=== PATIENT | female | born 1995 | race Caucasian/White ===

== ENCOUNTER 2024-10-31 19:04 | Emergency (ER) | payer OTHER ==
[~2024-10-31] VITALS: Ht 167.6 cm; Wt 73.4 kg
[2024-11-01 00:47] LABS: BASO # 0.1 10^3/uL (0.0-0.2); BASO % 0.6 % (0.0-1.0); EOS # 0.3 10^3/uL (0.0-0.5); EOS % 3.7 % (0.0-3.0); LYMPH # 2.4 10^3/uL (1.5-5.0); LYMPH % 30.8 % (24.0-44.0); MONO # 0.7 10^3/uL (0.0-0.8); MONO % 9.3 % (2.0-8.0); NEUTROPHILS # 4.4 10^3/uL (1.5-8.5); NEUTROPHILS % 55.1 % (36.0-66.0); PLATELET COUNT, AUTOMATED 273 10^3/uL (150-450)
[2024-11-01 01:14] LABS: ALT/SGPT 35 U/L (7.0-40); AST/SGOT 29 U/L (<34); CALCIUM LEVEL 9.8 MG/DL (8.5-10.1); CARBON DIOXIDE LEVEL 26 MMOL/L (20-31); CHLORIDE LEVEL 105 MMOL/L (98-107); CREATININE FOR GFR 0.65 MG/DL (0.55-1.30); GLOMERULAR FILTRATION RATE > 90.0 (>60); HCG, SERUM QUALITATIVE POSITIVE (NEGATIVE); POTASSIUM SERUM 4.2 MMOL/L (3.5-5.1); SODIUM LEVEL 142 MMOL/L (136-145)
[2024-11-01 02:50] VITALS: TEMP 98
[2024-11-01 02:53] LABS: HCG, SERUM QUANTITATIVE 7589.7 MIU/ML (<4.2)
[2024-11-01 06:05] VITALS: BP 107/65; O2SAT 99
== END 2024-11-01 06:57 | disposition home or self-care (01) ==
LOC: M ED 19:04
DX: O46.91 Antepartum hemorrhage, unspecified, first trimester (principal); Z3A.01 Less than 8 weeks gestation of pregnancy; O34.81 Maternal care for other abnormalities of pelvic organs, first trimester; N83.291 Other ovarian cyst, right side

== ENCOUNTER → 2024-11-03 | Outpatient (CLI) | payer OTHER | LOC: M LAB 12:41 | DX: N93.9 Abnormal uterine and vaginal bleeding, unspecified (principal) ==

== ENCOUNTER → 2024-12-26 | Outpatient (CLI) | payer OTHER ==
[2024-12-26 13:29] LABS: PLATELET COUNT, AUTOMATED 282 10^3/uL (150-450)
[2024-12-26 14:04] LABS: HIV 1&2 SCREEN NEGATIVE (NEGATIVE)
[2024-12-26 14:12] LABS: HEPATITIS C VIRUS ABY INDEX 0.26 INDEX (<0.8)
[2024-12-26 14:42] LABS: Trichomonas vaginalis (AMP) NOT DETECTED (NEGATIVE)
[2024-12-26 15:06] LABS: GC DNA AMPLIFICATION NEGATIVE (NEGATIVE)
== END ==
LOC: M PLALAB 10:55
PROVIDERS: ATTEND Advanced Practice Midwife
DX: Z34.81 Encounter for supervision of other normal pregnancy, first trimester (principal); Z3A.00 Weeks of gestation of pregnancy not specified

== ENCOUNTER → 2024-12-26 | Outpatient (REF) | payer OTHER ==
[2024-12-27 17:12] LABS: BVAB 2 NEGATIVE (NEGATIVE)
[2024-12-27 17:33] LABS: CANDIDA GLABRATA NAA NOT DETECTED (NOT DETECTED); TRICH VAG BY NAA NOT DETECTED (NOT DETECTED)
[2024-12-27 17:47] LABS: CHLAMYDIA TRACHOMATIS NAA NOT DETECTED (NOT DETECTED)
== END ==
LOC: M PLALAB 10:31
PROVIDERS: ATTEND Advanced Practice Midwife
DX: Z34.81 Encounter for supervision of other normal pregnancy, first trimester (principal)

== ENCOUNTER → 2025-01-31 | Outpatient (CLI) | payer OTHER | LOC: M WHC 06:39 | PROVIDERS: ATTEND Advanced Practice Midwife | DX: Z34.82 Encounter for supervision of other normal pregnancy, second trimester (principal); Z3A.19 19 weeks gestation of pregnancy ==

== ENCOUNTER → 2025-02-27 | Outpatient (CLI) | payer OTHER | LOC: M WHC 12:00 | PROVIDERS: ATTEND Advanced Practice Midwife | DX: Z34.82 Encounter for supervision of other normal pregnancy, second trimester (principal) ==

== ENCOUNTER → 2025-03-18 | Outpatient (CLI) | payer OTHER ==
[2025-03-18 17:34] LABS: PLATELET COUNT, AUTOMATED 251 10^3/uL (150-450)
[2025-03-18 18:05] LABS: GLUCOSE CHALLENGE TEST 1 HOUR 102 MG/DL (LESS THAN 140)
[2025-03-18 18:16] LABS: Trichomonas vaginalis (AMP) NOT DETECTED (NEGATIVE)
[2025-03-18 18:40] LABS: GC DNA AMPLIFICATION NEGATIVE (NEGATIVE); HIV 1&2 SCREEN NEGATIVE (NEGATIVE)
[2025-03-18 18:48] LABS: HEPATITIS C VIRUS ABY INDEX 0.10 INDEX (<0.8)
== END ==
LOC: M PLALAB 14:44
PROVIDERS: ATTEND Student in an Organized Health Care Education/Training Program
DX: Z34.80 Encounter for supervision of other normal pregnancy, unspecified trimester (principal)

== ENCOUNTER → 2025-04-08 | Outpatient (REF) | payer OTHER ==
[~2025-04-08] MED LIST: ACET-897 PO; ALBU8.5H INH; PRED20TA PO; PRENTAB9 PO; ROBI1LIQ9 PO; SYMB16INH INH
== END ==
LOC: M LAB REF 17:06
PROVIDERS: ATTEND Physician Assistant
DX: J06.9 Acute upper respiratory infection, unspecified (principal)

== ENCOUNTER 2025-04-18 11:53 | Inpatient (IN) | payer OTHER ==
[~2025-04-18] VITALS: Ht 167.6 cm; Wt 74.5 kg
[2025-04-18 12:15] VITALS: BP 122/60; O2SAT 92
[2025-04-18] MEDS ORDERED: ROBI1LIQ9 PO (12:18)
[2025-04-18] MEDS ORDERED: PRENTAB9 PO (12:18)
[2025-04-18] MEDS ORDERED: ACET-897 PO (12:18)
[2025-04-18] MEDS: ONDANSETRON 4MG/2ML VIAL IV PRN (12:48)
[2025-04-18] MEDS: LR 500 ML IV ONE (12:48)
[2025-04-18 13:03] LABS: BASO # 0.0 10^3/uL (0.0-0.2); BASO % 0.2 % (0.0-1.0); EOS # 0.1 10^3/uL (0.0-0.5); EOS % 0.6 % (0.0-3.0); LYMPH # 0.9 10^3/uL (1.5-5.0); LYMPH % 8.0 % (24.0-44.0); MONO # 0.9 10^3/uL (0.0-0.8); MONO % 7.8 % (2.0-8.0); NEUTROPHILS # 9.5 10^3/uL (1.5-8.5); NEUTROPHILS % 82.3 % (36.0-66.0); PLATELET COUNT, AUTOMATED 279 10^3/uL (150-450)
[2025-04-18] MEDS: LR 1,000 ML IV SCH (13:27)
[2025-04-18 13:42] LABS: ALT/SGPT 51 U/L (7.0-40); AST/SGOT 80 U/L (<34); CALCIUM LEVEL 8.7 MG/DL (8.5-10.1); CARBON DIOXIDE LEVEL 20 MMOL/L (20-31); CHLORIDE LEVEL 104 MMOL/L (98-107); CREATININE FOR GFR 0.45 MG/DL (0.55-1.30); GLOMERULAR FILTRATION RATE > 90.0 (>60); POTASSIUM SERUM 4.3 MMOL/L (3.5-5.1); SODIUM LEVEL 137 MMOL/L (136-145)
[2025-04-18 16:07] VITALS: BP 96/53; O2SAT 95
[2025-04-18] MEDS: AZITHROMYCIN INJ 500 MG, VIAL MATE ADAPTER 1 EACH in NS 250 ML IV SCH (16:52)
[2025-04-18] MEDS: cefTRIAXone SOD 1 GM in DEXTROSE 5% (D5W) ADV/MINI-BAG 50 ML IV SCH (18:49)
[2025-04-18 19:35] VITALS: BP 91/51
[2025-04-18 21:42] VITALS: BP 94/53; O2SAT 97
[2025-04-19 03:29] VITALS: BP 90/52
[2025-04-19] MEDS: guaiFENesin DM LIQ 10ML UD PO PRN (03:38)
[2025-04-19] MEDS: ALBUTEROL SULFATE 2.5 MG/0.5 ML INH CONCENTRATE NEB SOLN NEB PRN (04:46)
[2025-04-19 07:02] LABS: BASO # 0.0 10^3/uL (0.0-0.2); BASO % 0.3 % (0.0-1.0); EOS # 0.1 10^3/uL (0.0-0.5); EOS % 0.9 % (0.0-3.0); LYMPH # 1.3 10^3/uL (1.5-5.0); LYMPH % 13.9 % (24.0-44.0); MONO # 0.9 10^3/uL (0.0-0.8); MONO % 9.3 % (2.0-8.0); NEUTROPHILS # 6.7 10^3/uL (1.5-8.5); NEUTROPHILS % 73.4 % (36.0-66.0); PLATELET COUNT, AUTOMATED 282 10^3/uL (150-450)
[2025-04-19 07:42] LABS: ALT/SGPT 56 U/L (7.0-40); AST/SGOT 55 U/L (<34); CALCIUM LEVEL 7.9 MG/DL (8.5-10.1); CARBON DIOXIDE LEVEL 20 MMOL/L (20-31); CHLORIDE LEVEL 107 MMOL/L (98-107); CREATININE FOR GFR 0.52 MG/DL (0.55-1.30); GLOMERULAR FILTRATION RATE > 90.0 (>60); MAGNESIUM LEVEL 1.6 MG/DL (1.8-2.4); POTASSIUM SERUM 3.6 MMOL/L (3.5-5.1); SODIUM LEVEL 139 MMOL/L (136-145)
[2025-04-19 09:03] VITALS: BP 105/53
[2025-04-19] MEDS: MAG SULF 1GM/100ML (MAG RUN) 1 GM in IV 1 EA IV SCH (10:42)
[2025-04-19 12:25] VITALS: BP 91/51
[2025-04-19 15:29] VITALS: BP 101/56
[2025-04-19 19:04] VITALS: BP 99/57; O2SAT 99
[2025-04-19 23:51] VITALS: BP 102/57; O2SAT 97
[2025-04-20] VITALS (8 sets, daily range): BP systolic 83–121; BP diastolic 45–58; O2SAT 96–99
[2025-04-20 06:24] LABS: BASO # 0.0 10^3/uL (0.0-0.2); BASO % 0.4 % (0.0-1.0); EOS # 0.1 10^3/uL (0.0-0.5); EOS % 1.2 % (0.0-3.0); LYMPH # 1.0 10^3/uL (1.5-5.0); LYMPH % 12.5 % (24.0-44.0); MONO # 0.7 10^3/uL (0.0-0.8); MONO % 9.0 % (2.0-8.0); NEUTROPHILS # 6.1 10^3/uL (1.5-8.5); NEUTROPHILS % 75.2 % (36.0-66.0); PLATELET COUNT, AUTOMATED 271 10^3/uL (150-450)
[2025-04-20 07:06] LABS: ALT/SGPT 66 U/L (7.0-40); AST/SGOT 70 U/L (<34); CALCIUM LEVEL 7.8 MG/DL (8.5-10.1); CARBON DIOXIDE LEVEL 23 MMOL/L (20-31); CHLORIDE LEVEL 108 MMOL/L (98-107); CREATININE FOR GFR 0.44 MG/DL (0.55-1.30); GLOMERULAR FILTRATION RATE > 90.0 (>60); MAGNESIUM LEVEL 1.7 MG/DL (1.8-2.4); POTASSIUM SERUM 3.5 MMOL/L (3.5-5.1); SODIUM LEVEL 140 MMOL/L (136-145)
[2025-04-20] MEDS: MAG SULF 1GM/100ML (MAG RUN) 1 GM in IV 1 EA IV SCH (09:10)
[2025-04-20] MEDS: KCL 10MEQ/100ML SWI (KRUN) 10 MEQ in IV 1 EA IV SCH (10:16)
[2025-04-20] MEDS: POTASSIUM CHLORIDE 10MEQ SR TABLET PO ONE (12:32)
[2025-04-21] VITALS (14 sets, daily range): BP systolic 91–116; BP diastolic 45–72; O2SAT 95–98
[2025-04-21] MEDS: ACETAMINOPHEN 500 MG TAB PO PRN (00:27)
[2025-04-21 06:56] LABS: BASO # 0.0 10^3/uL (0.0-0.2); BASO % 0.5 % (0.0-1.0); EOS # 0.1 10^3/uL (0.0-0.5); EOS % 2.2 % (0.0-3.0); LYMPH # 1.1 10^3/uL (1.5-5.0); LYMPH % 20.8 % (24.0-44.0); MONO # 0.5 10^3/uL (0.0-0.8); MONO % 8.8 % (2.0-8.0); NEUTROPHILS # 3.5 10^3/uL (1.5-8.5); NEUTROPHILS % 64.4 % (36.0-66.0); PLATELET COUNT, AUTOMATED 308 10^3/uL (150-450)
[2025-04-21 08:01] LABS: ALT/SGPT 90 U/L (7.0-40); AST/SGOT 90 U/L (<34); CALCIUM LEVEL 7.9 MG/DL (8.5-10.1); CARBON DIOXIDE LEVEL 22 MMOL/L (20-31); CHLORIDE LEVEL 110 MMOL/L (98-107); CREATININE FOR GFR 0.39 MG/DL (0.55-1.30); GLOMERULAR FILTRATION RATE > 90.0 (>60); MAGNESIUM LEVEL 1.8 MG/DL (1.8-2.4); POTASSIUM SERUM 3.5 MMOL/L (3.5-5.1); SODIUM LEVEL 141 MMOL/L (136-145)
[2025-04-21] MEDS: POTASSIUM CHLORIDE 10MEQ SR TABLET PO ONE (09:02)
[2025-04-21] MEDS: AZITHROMYCIN 250 MG TABLET PO SCH (18:56)
[2025-04-22] VITALS (8 sets, daily range): BP systolic 103–118; BP diastolic 62–81; O2SAT 95–98
[2025-04-22 07:37] LABS: BASO # 0.0 10^3/uL (0.0-0.2); BASO % 0.6 % (0.0-1.0); EOS # 0.2 10^3/uL (0.0-0.5); EOS % 2.3 % (0.0-3.0); LYMPH # 1.6 10^3/uL (1.5-5.0); LYMPH % 22.5 % (24.0-44.0); MONO # 0.4 10^3/uL (0.0-0.8); MONO % 5.8 % (2.0-8.0); NEUTROPHILS # 4.5 10^3/uL (1.5-8.5); NEUTROPHILS % 64.5 % (36.0-66.0); PLATELET COUNT, AUTOMATED 325 10^3/uL (150-450)
[2025-04-22 09:31] LABS: ALT/SGPT 108 U/L (7.0-40); AST/SGOT 94 U/L (<34); CALCIUM LEVEL 9.0 MG/DL (8.5-10.1); CARBON DIOXIDE LEVEL 23 MMOL/L (20-31); CHLORIDE LEVEL 107 MMOL/L (98-107); CREATININE FOR GFR 0.45 MG/DL (0.55-1.30); GLOMERULAR FILTRATION RATE > 90.0 (>60); MAGNESIUM LEVEL 1.6 MG/DL (1.8-2.4); POTASSIUM SERUM 3.6 MMOL/L (3.5-5.1); SODIUM LEVEL 140 MMOL/L (136-145)
[2025-04-22] MEDS: OMEPRAZOLE 20MG CAP PO SCH (16:45)
[2025-04-22] MEDS: ENOXAPARIN 40 MG/0.4 ML SYRINGE (J1650 PER 10MG) SC SCH (16:45)
[2025-04-22] MEDS: predniSONE 20 MG TAB PO ONE (18:55)
[2025-04-22] MEDS: SYMBICORT 160/4.5MCG INHALER 6GM INH SCH (21:13)
[2025-04-23] VITALS (9 sets, daily range): BP systolic 96–126; BP diastolic 51–61; O2SAT 95–97
[2025-04-23 06:32] LABS: PLATELET COUNT, AUTOMATED 381 10^3/uL (150-450)
[2025-04-23 06:57] LABS: ALT/SGPT 142 U/L (7.0-40); AST/SGOT 116 U/L (<34); CALCIUM LEVEL 8.8 MG/DL (8.5-10.1); CARBON DIOXIDE LEVEL 21 MMOL/L (20-31); CHLORIDE LEVEL 106 MMOL/L (98-107); CREATININE FOR GFR 0.39 MG/DL (0.55-1.30); GLOMERULAR FILTRATION RATE > 90.0 (>60); POTASSIUM SERUM 4.0 MMOL/L (3.5-5.1); SODIUM LEVEL 139 MMOL/L (136-145)
[2025-04-23] MEDS ORDERED: NS (Normal Saline) 0.9% 1,000 ML IV SCH (07:10)
[2025-04-23 08:11] LABS: INR 1.0
[2025-04-23 08:18] LABS: CPK CREATINE PHOSPHOKINASE 42 U/L (34-145)
[2025-04-23 08:38] LABS: CK-MB VALUE MASS < 1.0 NG/ML (<3.6)
[2025-04-23] MEDS: PRENATAL VITAMINS CHEWABLE TABLET PO SCH (09:02)
[2025-04-23 09:16] LABS: HEPATITIS C VIRUS ABY INDEX 0.18 INDEX (<0.8)
[2025-04-23] MEDS: predniSONE 20 MG TAB PO SCH (11:38)
[2025-04-23] MEDS ORDERED: SYMB16INH INH (15:48)
[2025-04-23] MEDS ORDERED: PRED20TA PO (15:48)
[2025-04-23] MEDS ORDERED: ALBU8.5H INH (15:48)
== END 2025-04-23 19:27 | disposition home or self-care (01) | DRG 831 ==
LOC: M LDO 11:53 → M LDI 15:55 → OBSVTOIN 04-22 07:36
PROVIDERS: ADMIT Advanced Practice Midwife; ATTEND Advanced Practice Midwife
DX: O99.513 Diseases of the respiratory system complicating pregnancy, third trimester (principal); J18.9 Pneumonia, unspecified organism; J45.901 Unspecified asthma with (acute) exacerbation; Z3A.30 30 weeks gestation of pregnancy; F41.9 Anxiety disorder, unspecified; Z88.8 Allergy status to other drugs, medicaments and biological substances; Z91.013 Allergy to seafood; O99.343 Other mental disorders complicating pregnancy, third trimester; O36.8130 Decreased fetal movements, third trimester, not applicable or unspecified